=== PATIENT | male | born 1970 | race Caucasian/White ===

== ENCOUNTER 2019-12-23 10:24 | Outpatient (CLI) | payer OTHER, SELFPAY ==
--- NOTE | ~2019-12-23 | US_ITS ---
EXAMINATION: US abdomen complete DATE: 12/23/2019 11:32 INDICATION: Abdominal pain. TECHNIQUE: Multiple grayscale and Doppler ultrasound images of the abdomen were obtained. COMPARISON: Ultrasound 05/15/17, CT abdomen and pelvis 05/06/2017 FINDINGS: The visualized portions of the head, body, and tail of the pancreas are normal. The liver i s normal without focal lesion. There is normal flow in main portal vein. The gallbladder is normal in size. No gallstones or gallbladder wall thickening. There is no sonographic Maldonado sign. The common duct is normal and measures 3 mm. The kidneys are normal in size. No hydronephrosis. Abdominal aorta is normal in caliber. Inferior vena cava is normal. IMPRESSION: 1. No etiology for the patient's symptoms. Reviewed, dictated and finalized at location B. [employer]
[2019-12-23 11:45] LABS: Basophils Percent Auto 0.7 % (0.2-1.2); Eosinophils Percent Auto 0.5 % (0-4.4); Hematocrit 44.1 % (42.0-52.0); Hemoglobin 15.5 g/dL (14.0-18.0); Immature Granulocyte Absolute 0.01 K/mm3 (0.00-0.031); Immature Granulocyte Percent A 0.2 % (0-0.5); Lymphocytes Absolute Auto 1.29 K/mm3 (0.9-3.2); Lymphocytes Percent Auto 29.3 % (18.3-44.2); Mean Corpuscular HGB Conc 35.1 g/dl (32-36); Mean Corpuscular Hemoglobin 29.8 pg (26-34); Mean Corpuscular Volume 84.8 fl (80-100); Mean Platelet Volume 9.1 fl (7.4-10.4); Monocytes Absolute Auto 0.3 K/mm3 (0.1-0.6); Monocytes Percent Auto 5.7 % (2.6-8.5); Neutrophils Absolute Auto 2.8 K/mm3 (1.3-6.7); Neutrophils Percent Auto 63.6 % (45.5-73.1); Platelet Count Result 225 k/mm3 (150-375); Red Cell Distribution Width 12.6 % (11.5-14.5); White Blood Count 4.4 K/mm3 (4.5-10.0)
[2019-12-23 12:03] LABS: Alanine Aminotransferase 59 U/L (4-50); Albumin Level 4.5 g/dL (3.5-5.1); Alkaline Phosphatase 63 U/L (38-126); Anion Gap 5 mmol/L (8-16); Aspartate Amino Transferase 43 U/L (17-59); Bilirubin,Total 0.6 mg/dL (0.2-1.3); Blood Urea Nitrogen 13 mg/dL (9-20); Calcium 9.2 mg/dL (8.4-10.2); Carbon Dioxide 33 mmol/L (22-30); Chloride 98 mmol/L (98-107); Cholesterol 177 mg/dL (0-200); Estimated Glomerular Filt Rate > 60; Glucose 103 mg/dL (75-110); HDL Direct 49 mg/dL; Potassium 4.7 mmol/L (3.4-5.0); Sodium 136 mmol/L (137-145); Triglycerides 60 mg/dL (<150)
[2019-12-23 12:14] LABS: LDL Cholesterol Direct 109 mg/dL
== END 2019-12-23 10:25 | disposition home or self-care (01) ==
PROVIDERS: PCP Internal Medicine; Visit Provider Nurse Practitioner
DX: R10.9 Unspecified abdominal pain (principal); R53.83 Other fatigue; Z13.220 Encounter for screening for lipoid disorders
CPT/HCPCS: 36415; 76700; 80053; 80061; 84443; 85025

== ENCOUNTER → 2020-04-30 00:15 | Outpatient (CLI) | payer OTHER, SELFPAY ==
[2020-04-30 19:13] LABS: SARS-CoV-2 RNA PCR Negative
== END ==
PROVIDERS: PCP Internal Medicine; Visit Provider Internal Medicine Gastroenterology
DX: Z01.812 Encounter for preprocedural laboratory examination (principal); Z20.822 Contact with and (suspected) exposure to COVID-19
CPT/HCPCS: C9803; U0003; U0005

== ENCOUNTER 2020-05-04 02:32 | Day surgery (SDC) | payer OTHER, SELFPAY ==
[2020-03-24 10:57] VITALS: BMI 29.9
--- NOTE | 2020-04-19 15:17 | PC.NURSE ---
Patient denies any changes in health history since last interview. New COVID and arrival times given. Instructions about medications and NPO status given. Patient verbalizes understanding.
[2020-05-04 08:21] VITALS: BP 142/90; PULSE 63; RESP 20; TEMP 36.5; O2SAT 100
[2020-05-04] MEDS: LACTATED RINGERS 1,000 ML 150 ML IV CONT (08:34)
--- NOTE | 2020-05-04 09:11 | WPDANESEPPF ---
Anes - Initial Pre Proc Eval Procedure: Operation Date: 05/04/20 09:30 Proposed Procedures p Esophagogastroduodenoscopy & Screening Colonoscopy - Eamon Martinez MD Date/Time: 05/04/20 09:11 Surgeon: Eamon Martinez MD Pre Op Diagnosis: Neoplasm Screening,GERD Patient Data Age: 50 Gender: M Height: 6 ft Weight: 100 kg Last Vital Signs Temp 97.7 F 05/04/20 08:21 Pulse 63 05/04/20 08:21 Resp 20 05/04/20 08:21 BP 142/90 H 05/04/20 08:21 Pulse Ox 100 05/04/20 08:21 Allergies Allergy/AdvReac Type Severity Reaction Status Date / Time No Known Allergies Allergy Unknown Verified 05/04/20 08:20 Home Medications Medication Instructions Recorded Confirmed Type metoprolol succinate 25 mg 25 mg PO DAILY 12/23/19 03/24/20 History tablet,extended release 24 hr omeprazole 20 mg tablet,delayed 20 mg PO DAILY 01/06/20 03/24/20 History release Patient hx anesthesia problems: none Family hx anesthesia problems: none [facility] Past Medical History Medical History (Updated 05/04/20 @ 09:11 by Nik Carpenter MD) Atrial fibrillation had ablation done; now on metoprolol Colon cancer screening GERD (gastroesophageal reflux disease) History of cardioversion 2009 HTN (hypertension) Surgical History Surgical History (Updated 12/23/19 @ 09:05 by Keyanna Verma) History of hernia repair Inguinal 2007 History of tonsillectomy 1983 Family History Family History (Updated 12/23/19 @ 09:07 by Keyanna Verma) Mother Heart disease Father Cancer Grandparent Cerebrovascular accident Cancer Diabetes mellitus Heart disease Social History Social History (Updated 12/23/19 @ 09:07 by Keyanna Verma) Smoking status: Never smoker Alcohol intake: current Drinks per week: 3 Substance use: never Substance use type: does not use Living arrangements: with family Spiritual care concerns: No Anes - Eval Final PreProcedure Day of Procedure 05/04/20 09:11 Patient weight: overweight Heart: regular rate and rhythm Lungs: clear to auscultation Airway: Mallampati scale class II Neurological: alert and oriented Last oral intake: >/= 8 hours ASA classification: III Emergent: no Anesthetic plan: proceed Anesthesia type and monitoring: general GIVS and standard monitoring Informed Consent: The patient's anesthetic plan and its attendant risks and benefits were discussed with the patient/family/POA. Questions were solicited and answers provided to the satisfaction of the patient/family/POA.
--- NOTE | 2020-05-04 09:16 | PM.HPGS ---
History of Present Illness History of Present Illness Consent: Risks, benefits, and alternatives have been discussed and questions answered. Patient agrees to proceed with procedure. Chief complaint: Neoplasm Screening,GERD Narrative: John Lamar is a 50 year old male with gerd controlled with ppi but will have symptoms if skips a dose, never had scope. Also needs screening colonoscopy Review of Systems Constitutional: Constitutional: Denies headache(s) and Denies weakness Eyes: Eyes: Denies blurry vision ENT: Reports Normal hearing present, Denies headache(s) and Denies neck pain Cardiovascular: Cardiovascular: Denies chest pain and Denies dyspnea Respiratory: Respiratory: Denies dyspnea Gastrointestinal: Gastrointestinal: Reports no additional gastrointestinal complaints Genitourinary: Genitourinary: Denies dysuria Musculoskeletal: Musculoskeletal: Denies neck pain Integumentary/Breasts: Skin/Breast: Denies dry skin Neurologic: Reports Normal hearing present, Denies headache(s) and Denies weakness Psychiatric: Psychiatric: Denies anxiety Endocrine: Endocrine: Denies change in body appearance Hematologic/Lymphatic: Hematologic/Lymphatic: Denies easy bleeding Allergic/Immunologic: Allergic/Immunologic: Denies urticaria PMFSH Past Medical History Medical History (Updated 05/04/20 @ 09:11 by Nik Carpenter MD) Atrial fibrillation had ablation done; now on metoprolol Colon cancer screening GERD (gastroesophageal reflux disease) History of cardioversion 2009 HTN (hypertension) Surgical History Surgical History (Updated 12/23/19 @ 09:05 by Keyanna Verma) History of hernia repair Inguinal 2007 History of tonsillectomy 1983 Family History Family History (Updated 12/23/19 @ 09:07 by Keyanna Verma) Mother Heart disease Father Cancer Grandparent Cerebrovascular accident Cancer Diabetes mellitus Heart disease Social History Social History (Updated 12/23/19 @ 09:07 by Keyanna Verma) Smoking status: Never smoker Alcohol intake: current Drinks per week: 3 Substance use: never Substance use type: does not use Living arrangements: with family Spiritual care concerns: No Meds Home Medications and Allergies Home Medications Medication Instructions Recorded Confirmed Type metoprolol succinate 25 mg 25 mg PO DAILY 12/23/19 03/24/20 History tablet,extended release 24 hr omeprazole 20 mg tablet,delayed 20 mg PO DAILY 01/06/20 03/24/20 History release Allergies Allergy/AdvReac Type Severity Reaction Status Date / Time No Known Allergies Allergy Unknown Verified 05/04/20 08:20 Vital Signs Vital Signs - 24 hr 05/04/20 08:21 Temperature 97.7 F Pulse Rate 63 Respiratory Rate 20 Blood Pressure 142/90 H Pulse Oximetry 100 Exam Const: General: comfortable and no acute distress HENMT: General nose exam: Normal nares present Eyes: General: appearance normal, both eyes and all related structures Neck: Neck: no JVD Resp: Auscultation: clear to auscultation bilaterally Cardio: Rate: regular rate Rhythm: regular rhythm GI: Inspection: non-distended GI Palp: Yes Soft to palpation Skin: General skin exam: normal color Neuro: General: gait normal Speech: normal speech Extrem: General: normal to inspection Psych: Mental Status: mental status grossly normal Assessment and Plan Assessment and plan (1) GERD (gastroesophageal reflux disease): Code(s): K21.9 - Gastro-esophageal reflux disease without esophagitis Status: Acute Assessment and Plan: egd with bx (2) Colon cancer screening: Code(s): Z12.11 - Encounter for screening for malignant neoplasm of colon Status: Acute Assessment and Plan: never had a colonoscopy
[2020-05-04 09:47] VITALS: BP 124/84; PULSE 60; RESP 19; O2SAT 98
[2020-05-04 09:57] VITALS: BP 116/81; PULSE 62; RESP 20; O2SAT 97
[2020-05-04 10:07] VITALS: BP 118/60; PULSE 64; RESP 20; O2SAT 97
== END 2020-05-04 10:25 | disposition home or self-care (01) ==
PROVIDERS: Family Provider Internal Medicine; PCP Internal Medicine; Visit Provider Internal Medicine Gastroenterology
PROC: 0DJ08ZZ Inspection of Upper Intestinal Tract, Via Natural or Artificial Opening Endoscopic (ICD-10-PCS; CPT 43235; principal; 2020-05-04 09:30)
DX: Z12.11 Encounter for screening for malignant neoplasm of colon (principal); K64.8 Other hemorrhoids; K21.00 Gastro-esophageal reflux disease with esophagitis, without bleeding; K44.9 Diaphragmatic hernia without obstruction or gangrene; K22.70 Barrett's esophagus without dysplasia; K29.50 Unspecified chronic gastritis without bleeding
CPT/HCPCS: 45378; 43239; 88305; J2001; J2704; J7120

== ENCOUNTER 2020-05-24 10:35 | Outpatient (CLI) | payer OTHER, SELFPAY ==
--- NOTE | ~2020-05-24 | CT_ITS ---
EXAMINATION: CT abdomen pelvis wo con DATE: 05/24/2020 10:55 INDICATION: Unspecified abdominal pain. TECHNIQUE: Computed tomography (CT) of the abdomen and pelvis was performed without intravenous contr ast. Automated exposure control and iterative reconstruction technique were employed. The dose-length product was 810.67 mGy-cm. COMPARISON: CT abdomen and pelvis 05/06/2017 FINDINGS: The visualized portions of the lung bases demonstrates mild atelectasis. No pleural effusio n. The heart size is normal. No pericardial effusion. There is a small sliding hiatal hernia. The pravin er, gallbladder, pancreas, and adrenal glands are normal. Calcifications in the spleen are consistent with old granulomatous disease. The kidneys are normal. There is no urolithiasis. There is a small u mbilical hernia containing fat. There is a left inguinal hernia containing fat. There are no dilated loops of bowel. The appendix is not visualized. There are no pathologically enlarged lymph nodes. The re is no free intraperitoneal fluid. There is mild lumbar spondylosis. IMPRESSION: 1. Small sliding hiatal hernia. 2. Umbilical hernia and left inguinal hernia containing fat. Reviewed, dictated and finalized at location A.
== END 2020-05-24 10:36 | disposition home or self-care (01) ==
LOC: ANHIMG 10:37
PROVIDERS: PCP Internal Medicine; Visit Provider Nurse Practitioner
DX: K44.9 Diaphragmatic hernia without obstruction or gangrene (principal)
CPT/HCPCS: 74176

== ENCOUNTER 2020-06-02 10:26 | Outpatient (CLI) | payer OTHER, SELFPAY ==
[2020-06-02 11:18] LABS: Alanine Aminotransferase 37 U/L (4-50); Albumin Level 4.6 g/dL (3.5-5.1); Alkaline Phosphatase 56 U/L (38-126); Anion Gap 6 mmol/L (8-16); Aspartate Amino Transferase 41 U/L (17-59); Bilirubin,Total 0.3 mg/dL (0.2-1.3); Blood Urea Nitrogen 17 mg/dL (9-20); Carbon Dioxide 30 mmol/L (22-30); Chloride 92 mmol/L (98-107); Estimated Glomerular Filt Rate > 60; Glucose 103 mg/dL (75-110); Potassium 4.7 mmol/L (3.4-5.0); Sodium 128 mmol/L (137-145)
== END 2020-06-02 10:27 | disposition home or self-care (01) ==
LOC: ANHLAB 10:27
PROVIDERS: PCP Internal Medicine; Visit Provider Clinical Nurse Specialist
DX: R74.8 Abnormal levels of other serum enzymes (principal); Z12.5 Encounter for screening for malignant neoplasm of prostate
CPT/HCPCS: 36415; 80053; 84153; G0103

== ENCOUNTER 2020-06-21 17:53 | Outpatient (CLI) | payer OTHER, SELFPAY ==
[2020-06-21 18:15] LABS: Anion Gap 7 mmol/L (8-16); Blood Urea Nitrogen 20 mg/dL (9-20); Calcium 9.1 mg/dL (8.4-10.2); Carbon Dioxide 29 mmol/L (22-30); Chloride 97 mmol/L (98-107); Estimated Glomerular Filt Rate > 60; Glucose 99 mg/dL (75-110); Potassium 4.1 mmol/L (3.4-5.0); Sodium 133 mmol/L (137-145)
== END 2020-06-21 17:54 | disposition home or self-care (01) ==
LOC: ANHLAB 17:55
PROVIDERS: PCP Internal Medicine; Visit Provider Clinical Nurse Specialist
DX: E87.1 Hypo-osmolality and hyponatremia (principal)
CPT/HCPCS: 36415; 80048

== ENCOUNTER 2021-11-07 00:34 | Day surgery (SDC) | payer OTHER, SELFPAY ==
[2021-10-23 13:42] VITALS: BMI 29.9
[2021-11-07 08:45] VITALS: BP 130/89; PULSE 60; RESP 18; TEMP 36.2; O2SAT 100; BMI 30.6
[2021-11-07] MEDS: LACTATED RINGERS 1,000 ML 150 ML IV CONT (09:06)
--- NOTE | 2021-11-07 09:30 | WPDANESEPPF ---
Anes - Initial Pre Proc Eval Procedure: Operation Date: 11/07/21 10:00 Proposed Procedures p Esophagogastroduodenoscopy - Eamon Martinez MD Date/Time: 11/07/21 09:30 Surgeon: Eamon Martinez MD Pre Op Diagnosis: Barretts' esophagus Patient Data Age: 51 Gender: M Height: 1.83 m Weight: 102.5 kg Last Vital Signs Temp 97.1 F L 11/07/21 08:45 Pulse 60 11/07/21 08:45 Resp 18 11/07/21 08:45 BP 130/89 11/07/21 08:45 Pulse Ox 100 11/07/21 08:45 O2 Del Method Room Air 11/07/21 08:45 Allergies Allergy/AdvReac Type Severity Reaction Status Date / Time No Known Allergies Allergy Unknown Verified 11/07/21 08:51 Home Medications Medication Instructions Recorded Confirmed Type metoprolol succinate 25 mg 25 mg PO DAILY 12/23/19 11/07/21 History tablet,extended release 24 hr omeprazole 20 mg tablet,delayed 40 mg PO DAILY 1 month #60 tabs 05/15/21 11/07/21 Rx release Patient hx anesthesia problems: none Family hx anesthesia problems: none Results Review: All pre-operative results and documents have been reviewed as part of the pre-operative evaluation. [facility] Past Medical History Medical History Atrial fibrillation had ablation done; now on metoprolol Colon cancer screening GERD (gastroesophageal reflux disease) History of cardioversion 2009 HTN (hypertension) Surgical History Surgical History History of hernia repair Inguinal 2007 History of tonsillectomy 1982 Family History Family History Mother Heart disease Father Cancer Grandparent Cerebrovascular accident Cancer Diabetes mellitus Heart disease Social History Social History Smoking status: Never smoker Alcohol intake: current Drinks per week: 6 Alcohol use details: BEER Substance use: never Substance use type: does not use Living arrangements: with family Spiritual care concerns: No Anes - Eval Final PreProcedure Day of Procedure 11/07/21 09:30 Patient weight: normal Heart: regular rate and rhythm Lungs: clear to auscultation Airway: Mallampati scale class II Neurological: alert and oriented Last oral intake: >/= 8 hours ASA classification: II Emergent: no Anesthetic plan: proceed Anesthesia type and monitoring: general GIVS and standard monitoring Results Review: All pre-operative results and documents have been reviewed as part of the pre-operative evaluation. Informed Consent: The patient's anesthetic plan and its attendant risks and benefits were discussed with the patient/family/POA. Questions were solicited and answers provided to the satisfaction of the patient/family/POA.
--- NOTE | 2021-11-07 09:34 | PM.HPGS ---
History of Present Illness History of Present Illness Consent: Risks, benefits, and alternatives have been discussed and questions answered. Patient agrees to proceed with procedure. 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, better with ppi Review of Systems Constitutional: Constitutional: Denies headache(s) and Denies weakness Eyes: Eyes: Denies blurry vision ENT: Reports Normal hearing present, Denies headache(s) and Denies neck pain Cardiovascular: Cardiovascular: Denies chest pain and Denies dyspnea Respiratory: Respiratory: Denies dyspnea Gastrointestinal: Gastrointestinal: Reports no additional gastrointestinal complaints Genitourinary: Genitourinary: Denies dysuria Musculoskeletal: Musculoskeletal: Denies neck pain Integumentary/Breasts: Skin/Breast: Denies dry skin Neurologic: Reports Normal hearing present, Denies headache(s) and Denies weakness Psychiatric: Psychiatric: Denies anxiety Endocrine: Endocrine: Denies change in body appearance Hematologic/Lymphatic: Hematologic/Lymphatic: Denies easy bleeding Allergic/Immunologic: Allergic/Immunologic: Denies urticaria PMFSH Past Medical History Medical History Atrial fibrillation had ablation done; now on metoprolol Colon cancer screening GERD (gastroesophageal reflux disease) History of cardioversion 2009 HTN (hypertension) Surgical History Surgical History History of hernia repair Inguinal 2007 History of tonsillectomy 1983 Family History Family History Mother Heart disease Father Cancer Grandparent Cerebrovascular accident Cancer Diabetes mellitus Heart disease Social History Social History Smoking status: Never smoker Alcohol intake: current Drinks per week: 6 Alcohol use details: BEER Substance use: never Substance use type: does not use Living arrangements: with family Spiritual care concerns: No Meds Home Medications and Allergies Home Medications Medication Instructions Recorded Confirmed Type metoprolol succinate 25 mg 25 mg PO DAILY 12/23/19 11/07/21 History tablet,extended release 24 hr omeprazole 20 mg tablet,delayed 40 mg PO DAILY 1 month #60 tabs 05/15/21 11/07/21 Rx release Allergies Allergy/AdvReac Type Severity Reaction Status Date / Time No Known Allergies Allergy Unknown Verified 11/07/21 08:51 Vital Signs Vital Signs - 24 hr 11/07/21 08:45 Temperature 97.1 F L Pulse Rate 60 Respiratory Rate 18 Blood Pressure 130/89 Pulse Oximetry 100 Oxygen Delivery Room Air Exam Const: General: comfortable and no acute distress HENMT: General nose exam: Normal nares present Eyes: General: appearance normal, both eyes and all related structures Neck: Neck: no JVD Resp: Auscultation: clear to auscultation bilaterally Cardio: Rate: regular rate Rhythm: regular rhythm GI: Inspection: non-distended GI Palp: Yes Soft to palpation Skin: General skin exam: normal color Neuro: General: gait normal Speech: normal speech Extrem: General: normal to inspection Psych: Mental Status: mental status grossly normal Assessment and Plan Assessment and plan (1) Lebron esophagus: Qualifiers: Lebron's esophagus type: with dysplasia of unspecified degree Qualified Code(s): K22.719 - Lebron's esophagus with dysplasia, unspecified Code(s): K22.70 - Lebron's esophagus without dysplasia Status: Acute Assessment and Plan: repeat egd with bx, continue with ppi
[2021-11-07 09:58] VITALS: BP 113/79; PULSE 59; RESP 20; O2SAT 96
[2021-11-07 10:08] VITALS: BP 122/84; PULSE 56; RESP 20; O2SAT 96
[2021-11-07 10:18] VITALS: BP 122/90; PULSE 55; RESP 19; O2SAT 97
== END 2021-11-07 10:24 | disposition home or self-care (01) ==
PROVIDERS: PCP Internal Medicine; Visit Provider Internal Medicine Gastroenterology
PROC: 0DJ08ZZ Inspection of Upper Intestinal Tract, Via Natural or Artificial Opening Endoscopic (ICD-10-PCS; CPT 43235; principal; 2021-11-07 10:00)
DX: K21.9 Gastro-esophageal reflux disease without esophagitis (principal); K22.70 Barrett's esophagus without dysplasia; K44.9 Diaphragmatic hernia without obstruction or gangrene; I48.91 Unspecified atrial fibrillation; I10 Essential (primary) hypertension
CPT/HCPCS: 43239; 88305; J2001; J2704; J7120

== ENCOUNTER 2022-03-22 14:48 | Outpatient (CLI) | payer OTHER, SELFPAY ==
[2022-03-22 16:02] LABS: SARS-CoV-2 RNA PCR Positive
== END 2022-03-22 14:49 | disposition home or self-care (01) ==
LOC: ANHLAB 14:50
PROVIDERS: PCP Internal Medicine; Visit Provider Clinical Nurse Specialist
DX: U07.1 COVID-19 (principal)
CPT/HCPCS: U0003; U0005

== ENCOUNTER 2022-06-01 08:41 | Emergency (ER) | payer OTHER, SELFPAY ==
--- NOTE | 2022-06-01 08:46 | ED.SKABFB ---
HPI - Skin/Abscess/Foreign Bdy General Chief complaint: Skin/Abscess/Foreign Body Stated complaint: painful rashes on back Time Seen by Provider: 06/01/22 08:49 Source: patient, RN notes reviewed and old records reviewed Mode of arrival: ambulatory Limitations: no limitations History of Present Illness HPI narrative: 52-year-old male presents to the [facility] with complaints of a painful red rash to his back. Bilateral back near scapulas, oval, started Saturday. No treatment prior to arrival describes it as intermittent painful at times. Not constant. Onset (ago): day(s) (2) Related Data Home Medications Medication Instructions Recorded Confirmed metoprolol succinate 25 mg 25 mg PO DAILY 12/23/19 06/01/22 tablet,extended release 24 hr Allergies Allergy/AdvReac Type Severity Reaction Status Date / Time No Known Allergies Allergy Unknown Verified 06/01/22 08:56 Review of Systems Review of Systems: All systems reviewed & are unremarkable except as noted in HPI and below Constitutional: Constitutional: Reports no additional constitutional complaints Eyes: Eyes: Reports no additional eye complaints ENT: Reports system reviewed and no additional complaints, except as documented Cardiovascular: Cardiovascular: Reports no additional cardiovascular complaints, Denies chest pain and Denies dyspnea Respiratory: Respiratory: Reports no additional respiratory complaints, Denies chest congestion, Denies cough and Denies dyspnea Gastrointestinal: Gastrointestinal: Reports no additional gastrointestinal complaints, Denies abdominal pain, Denies nausea and Denies vomiting Musculoskeletal: Musculoskeletal: Reports no additional musculoskeletal complaints Integumentary/Breasts: Skin/Breast: Reports as per HPI, Reports rash and Reports skin pain Neurologic: Reports system reviewed and no additional complaints, except as documented Psychiatric: Psychiatric: Reports no additional psychiatric complaints Allergic/Immunologic: Allergic/Immunologic: Reports no additional allergic/immunologic complaints [facility] Past Medical History Medical History Atrial fibrillation had ablation done; now on metoprolol Colon cancer screening GERD (gastroesophageal reflux disease) History of cardioversion 2009 HTN (hypertension) Surgical History Surgical History History of hernia repair Inguinal 2007 History of tonsillectomy 1983 Family History Family History Mother Heart disease Father Cancer Grandparent Cerebrovascular accident Cancer Diabetes mellitus Heart disease Social History Social History Smoking status: Never smoker Alcohol intake: current Drinks per week: 6 Alcohol use details: BEER Substance use: never Substance use type: does not use Living arrangements: with family Spiritual care concerns: No Comments At the time of my signature, I reviewed and agree with the nursing past medical, surgical, social, and family history. There is no relevant family history pertinent to the patient complaint. Exam Const: General: cooperative, healthy appearing, comfortable, no acute distress, well developed, alert and well nourished Nutritional Appearance: well nourished Orientation/consciousness: patient oriented x3 Limitations: no limitations HENMT: Head: normal to inspection Ears: hearing grossly normal bilaterally and external ears normal Face/Nose/Sinus: Normal external nose present, Normal nares present, Normal nasal mucous membranes and turbinates present and normal facial exam Face and sinus: normal facial exam Mouth: Yes Normal oral and palatal mucosa present, Yes lip normal and Yes moist mucous membranes Throat: posterior oropharynx normal and uvula midline Eyes:
[2022-06-01 08:55] VITALS: BP 147/98; PULSE 70; RESP 16; TEMP 36.7; O2SAT 100
== END 2022-06-01 09:07 | disposition home or self-care (01) ==
PROVIDERS: Emergency Provider Nurse Practitioner; PCP Internal Medicine
DX: L03.312 Cellulitis of back [any part except buttock and flank] (principal); I48.91 Unspecified atrial fibrillation; K21.9 Gastro-esophageal reflux disease without esophagitis; I10 Essential (primary) hypertension
CPT/HCPCS: 99213; G0463

== ENCOUNTER 2022-08-11 18:48 | Emergency (ER) | payer OTHER, SELFPAY ==
--- NOTE | ~2022-08-11 | CT_ITS ---
EXAMINATION: CT orbit BI w con DATE: 08/11/2022 21:12 INDICATION: Right-sided orbital cellulitis TECHNIQUE: Computed tomography (CT) of the roots was performed with 5 mL Omnipaque-350 intravenous co ntrast. Sagittal and coronal reconstructions were created. The dose-length product was 155.29 mGy-cm. COMPARISON: None FINDINGS: Mild right preseptal edema and soft tissue swelling. No abscess or subcutaneous gas. The deeper porti on of the right orbit including the globes appear normal with no post septal inflammatory stranding. Left orbit is normal. Mild mucosal thickening the paranasal sinuses with small amount of mucus versus mucous retention cyst at the posterior right sphenoid sinus. Bones appear normal with no fracture or erosions. Nasal septum is bowed mildly towards the left. Visualized portions of the mastoid air cell s and middle ear cavities are clear. Visualized portion of the brain appear normal. Left vertebral ar aarti is dominant. IMPRESSION: 1. Preseptal inflammatory stranding at the right orbit with no abscess or post septal inflammatory st randing to suggest deeper involvement of the right orbit. Reviewed, dictated and finalized at location A. IMPRESSION: 1. Preseptal inflammatory stranding at the right orbit with no abscess or post septal inflammatory stranding to suggest deeper involvement of the right orbit.
[2022-08-11 18:51] VITALS: BP 152/95; PULSE 66; RESP 18; TEMP 36.4; O2SAT 97
[2022-08-11] MEDS: TETRACAINE HCL 0.5% OPHTH SOLN 4 ML BTL 1 DROP EACH EYE (20:27)
[2022-08-11] MEDS: FLUORESCEIN SOD 1 MG/STRIP EACH EYE (20:27)
[2022-08-11 20:38] VITALS: BP 131/88; PULSE 63; RESP 13; TEMP 36.8; O2SAT 97
[2022-08-11] MEDS: OFLOXACIN 0.3% OPHTH SOLN 5 ML BTL 1 DROP EACH EYE (20:45)
[2022-08-11 20:46] LABS: Basophils Percent Auto 0.4 % (0.2-1.2); Eosinophils Absolute Auto 0.1 K/mm3 (0-0.3); Eosinophils Percent Auto 1.1 % (0-4.4); Hematocrit 43.5 % (42.0-52.0); Hemoglobin 14.8 g/dL (14.0-18.0); Immature Granulocyte Absolute 0.02 K/mm3 (0.00-0.031); Immature Granulocyte Percent A 0.2 % (0-0.5); Lymphocytes Absolute Auto 1.95 K/mm3 (0.9-3.2); Lymphocytes Percent Auto 21.6 % (18.3-44.2); Mean Corpuscular Hemoglobin 29.4 pg (26-34); Mean Corpuscular Volume 86.3 fl (80-100); Mean Platelet Volume 9.4 fl (7.4-10.4); Monocytes Absolute Auto 0.5 K/mm3 (0.1-0.6); Monocytes Percent Auto 5.6 % (2.6-8.5); Neutrophils Absolute Auto 6.4 K/mm3 (1.3-6.7); Neutrophils Percent Auto 71.1 % (45.5-73.1); Platelet Count Result 244 k/mm3 (150-375); Red Blood Count 5.04 M/mm3 (4.6-6.20); Red Cell Distribution Width 12.8 % (11.5-14.5)
[2022-08-11 20:58] LABS: Anion Gap 6 mmol/L (8-16); Blood Urea Nitrogen 18 mg/dL (9-20); Carbon Dioxide 31 mmol/L (22-30); Chloride 96 mmol/L (98-107); Estimated Glomerular Filt Rate > 60; Glucose 96 mg/dL (65-110); Potassium 4.2 mmol/L (3.4-5.0); Sodium 133 mmol/L (137-145)
--- NOTE | 2022-08-11 21:04 | ED.GENADULT ---
HPI - General Adult General Chief complaint: Eye Problems Stated complaint: right eye pain and discharge Time Seen by Provider: 08/11/22 19:35 History of Present Illness HPI narrative: This is a 52 year old male presenting with eye pain and discharge. Eye symptoms started this morning, they include injection, purulent discharge and pain with extra ocular eye movements. URI symptoms last week. No fever chills nausea vomiting diarrhea. . No risk factors for gonorhea. Related Data Home Medications Medication Instructions Recorded Confirmed metoprolol succinate 25 mg 25 mg PO DAILY 12/23/19 08/08/22 tablet,extended release 24 hr Allergies Allergy/AdvReac Type Severity Reaction Status Date / Time No Known Allergies Allergy Unknown Verified 08/11/22 18:48 [facility] Past Medical History Medical History Atrial fibrillation had ablation done; now on metoprolol Colon cancer screening GERD (gastroesophageal reflux disease) History of cardioversion 2009 HTN (hypertension) Surgical History Surgical History History of hernia repair Inguinal 2007 History of tonsillectomy 1983 Family History Family History Mother Heart disease Father Cancer Grandparent Cerebrovascular accident Cancer Diabetes mellitus Heart disease Social History Social History Smoking status: Never smoker Alcohol intake: current Drinks per week: 6 Alcohol use details: BEER Substance use: never Substance use type: does not use Lack of Transportation: No Lack of Food: Never True Current Housing: I Have Housing Concerned About Future Housing: No Difficulty Paying Gas/Electric Bills: No Difficulty Paying for Meds: No Currently Unemployed: No Education: Master's Degree or Higher Difficulty w/ Childcare or Family Care: No Living arrangements: with family Spiritual care concerns: No Exam Narrative: APPEARANCE: No apparent distress. Head: atraumatic. tympanic membranes are normal EYES: Contact eyelid junction and mucopurulent discharge of the right eye. extraocular eye movements intact. Patient reports pain with extraocular eye movements. IOP R 15, IOP L 10, fluorescein stain revealed no ulcerations NOSE: Atraumatic NECK: Trachea midline RESPIRATORY: No increased rate of breathing clear to auscultation CARDIOVASCULAR: RRR, ABDOMINAL: Non-distended MUSCULOSKELETAl: No obvious deformities NEURO: Alert. Moving 4/4 extremities SKIN:: Warm, dry. Normal color PSYCHIATRIC: Normal affect Course Vital Signs Vital signs: Vital Signs Temperature 97.5 F L 08/11/22 18:51 Pulse Rate 66 08/11/22 18:51 Respiratory Rate 18 08/11/22 18:51 Blood Pressure 152/95 H 08/11/22 18:51 Pulse Oximetry 97 08/11/22 18:51 Oxygen Delivery Room Air 08/11/22 18:51 Temperature 98.2 F 08/11/22 20:38 Pulse Rate 63 08/11/22 20:38 Respiratory Rate 13 08/11/22 20:38 Blood Pressure 131/88 08/11/22 20:38 Pulse Oximetry 97 08/11/22 20:38 Oxygen Delivery Room Air 08/11/22 18:51 Medical Decision Making MDM Narrative Medical decision making narrative: -Presentation: 52-year-old male presenting with painful red eye. -DDX includes but is not limited to: Bacterial conjunctivitis, viral conjunctivitis, orbital cellulitis -Co-morbidities complicating care: hypertension -Social determinants of health: patient works as a banking attorney -External Chart Review: none -Hx from independent Sources: bedside -Independent interpretation of studies: CBC normal. Metabolic panel showed slight hyponatremia and hypochloremia. IOP normal. No evidence of ulceration on flurescein stain. Visual acuity R 20/30, L 20/25 CT orbits showed some mild
[2022-08-11] MEDS: IBUPROFEN 400 MG TABLET 800 MG PO (22:00)
[2022-08-11] MEDS: ACETAMINOPHEN 500 MG TABLET 1000 MG PO (22:00)
[2022-08-11] MEDS: AMOXICILLIN/CLAVULANATE K 875-125 MG TAB 1 TABLET PO (22:01)
[2022-08-11 22:06] VITALS: BP 145/95; PULSE 62; RESP 14; TEMP 37.1; O2SAT 98
== END 2022-08-11 22:13 | disposition home or self-care (01) ==
PROVIDERS: Emergency Provider Emergency Medicine; PCP Internal Medicine
DX: L03.213 Periorbital cellulitis (principal); H10.89 Other conjunctivitis; I48.91 Unspecified atrial fibrillation; I10 Essential (primary) hypertension; K21.9 Gastro-esophageal reflux disease without esophagitis
CPT/HCPCS: 36415; 70481; 80048; 85025; 99284; A9270; Q9967

== ENCOUNTER 2024-09-13 08:24 | Emergency (ER) | payer OTHER, SELFPAY ==
[2024-09-13 08:33] VITALS: BP 131/90; PULSE 60; RESP 16; TEMP 36.4; O2SAT 100
--- NOTE | 2024-09-13 08:59 | ED_ITS ---
HPI - Nausea/Vomiting/Diarrhea General Chief complaint: Nausea/Vomiting/Diarrhea Stated complaint: Vomiting/Nausea Time Seen by Provider: 09/13/24 08:47 Source: patient and RN notes reviewed Mode of arrival: ambulatory Limitations: no limitations History of Present Illness HPI Narrative: Patient presents today complaining of nausea and vomiting since yesterday afternoon. He vomited several times, last episode was 4:00 a.m. this morning. He has been able to keep down some water and his to medications early this morning, and tried to go to a training exercise this morning but was unable as he was still feeling nauseated and weak. Denies diarrhea. States he did have some abdominal cramping during his vomiting episodes, but none currently. No OTC medications taken. No suspicious food intake or recent travel. No one else in his home is ill at this time. Related Data Home Medications ?Medication ?Instructions ?Recorded ?Confirmed ?Last Taken ?Type metoprolol succinate 25 mg 25 mg PO DAILY 12/23/19 08/08/22 05/04/20 History tablet,extended release 24 hr Allergies Allergy/AdvReac Type Severity Reaction Status Date / Time No Known Allergies Allergy Unknown Verified 09/13/24 08:46 [facility] Past Medical History Medical History Atrial fibrillation had ablation done; now on metoprolol GERD (gastroesophageal reflux disease) Colon cancer screening HTN (hypertension) History of cardioversion 2009 Surgical History Surgical History History of tonsillectomy 1983 History of hernia repair Inguinal 2006 Family History Family History Mother Heart disease Father Cancer Grandparent Cerebrovascular accident Cancer Diabetes mellitus Heart disease Social History Social History Smoking status: Never smoker Alcohol intake: current Drinks per week: 6 Alcohol use details: BEER Substance use: never Substance use type: does not use Lack of Transportation: No Lack of Food: Never True Current Housing: I Have Housing Concerned About Future Housing: No Difficulty Paying Gas/Electric Bills: No Difficulty Paying for Meds: No Currently Unemployed: No Education: Master's Degree or Higher Difficulty w/ Childcare or Family Care: No Living arrangements: with family Spiritual care concerns: No Comments At time of signature, I have reviewed and agree with nursing past medical, surgical, social and family history unless otherwise noted. Please see nursing chart for further information. There is no relevant family history pertinent to the presenting complaint Exam Narrative: GENERAL: Well-appearing, well-nourished, and in no acute distress. HEAD: Normocephalic, atraumatic. EYES: EOMI. No redness or drainage. Conjunctivae normal. ENT: Mucous membranes pink and moist. Throat normal. Uvula midline. NECK: Normal AROM. CHEST: No respiratory distress. Clear to auscultation. HEART: Regular rate and rhythm. No murmur appreciated. ABDOMEN: Soft, nontender, nondistended, normal active bowel sounds. EXTREMITIES: Normal range of motion. No edema. SKIN: Warm, dry, no rash. Capillary refill normal. Normal skin turgor. NEURO: No focal deficits. Alert and oriented x3. Gait steady. PSYCH: Normal affect. No signs of depression or anxiety. Course Course Level of Care: Express Care Visit Vital Signs Vital signs: Vital Signs Temperature 97.5 F L 09/13/24 08:33 Pulse Rate 60 09/13/24 08:33 Respiratory Rate 16 09/13/24 08:33 Blood Pressure 131/90 09/13/24 08:33 Pulse Oximetry 100 09/13/24 08:33 Temperature 97.5 F L 09/13/24 08:33 Pulse Rate 60 09/13/24 08:33 Respiratory Rate 16 09/13/24 08:33 Blood Pressure 131/90 09/13/24 08:33 Pulse Oximetry 100 09/13/24 08:33 Reviewed MDM - Nausea/Vomiting/Diarrhea MDM Narrative Medical decision making narrative: 54-year-old male patient presents today nausea and vomiting that started yesterday afternoon and persisted through the night. Last episode vomiting was 4. Patient has been able to keep down some water and his medications this morning has some persistent nausea. He called in to a work training exercise this morning and wanted to come in for evaluation. Physical exam is essentially normal with no abdominal tenderness. Mucous membranes pink and moist. Patient was treated with a dose of Zofran here and a prescription has been sent to pharmacy. Work excuse provided. Vital signs stable. No red flag symptoms to warrant a transfer to the emergency department for further evaluation. He is stable for outpatient management. Anticipatory guidance given. Differential Diagnosis Differential diagnosis: Likely food poisoning, gastroenteritis and dehydration Critical Care Time Critical Care Time Critical Care Time: No Discharge Plan Discharge Clinical Impression: Nausea & vomiting Qualifiers: Vomiting type: unspecified Qualified Code(s): R11.2 - Nausea with vomiting, unspecified Patient Disposition: Home Condition: Stable Instructions: Dehydration (ED), Acute Nausea and Vomiting (ED) Additional Instructions: Please take the Zofran as prescribed for your nausea and vomiting. Your 1st dose was administered while you are here at [facility]. Rest and stay hydrated today. Advance your diet as tolerated, starting with bland foods such as toast, crackers, rice. If you continue to vomit, even with medication, and are unable to keep down any fluids, please go to the ER immediately for further evaluation and treatment. Your blood pressure was elevated above 120/80 today at Urgent Care. This puts you above the threshold for follow up. Please schedule a followup visit with your personal physician as soon as possible, for further evaluation and treatment. Even blood pressure exceeding 120/80 may indicate pre-hypertension. Patient Language: Danish Prescriptions: New ondansetron 8 mg tablet,disintegrating 8 mg PO Q4-6H PRN (Reason: nausea and vomiting) Qty: 20 0RF No Action metoprolol succinate 25 mg tablet extended release 24 hr 25 mg PO DAILY omeprazole 20 mg tablet,delayed release (DR/EC) 40 mg PO DAILY 30 Days Qty: 60 12RF Follow-up/Referrals: PHYSICIAN,[employer]NA[employer] [Primary Care Provider] - Stand Alone Forms: Work/School Release IP Time of Disposition: 09:03
[2024-09-13] MEDS: ONDANSETRON HCL ODT 4 MG TABLET 8 MG SUBLINGUAL (09:01)
== END 2024-09-13 09:05 | disposition home or self-care (01) ==
PROVIDERS: Emergency Provider Nurse Practitioner
DX: R11.2 Nausea with vomiting, unspecified (principal); I10 Essential (primary) hypertension; K21.9 Gastro-esophageal reflux disease without esophagitis
CPT/HCPCS: 99213; A9270; G0463

== ENCOUNTER 2025-01-14 00:16 | Day surgery (SDC) | payer OTHER, SELFPAY ==
[2024-12-23 13:58] VITALS: BMI 29.8
[2025-01-14 06:18] VITALS: BP 146/99; PULSE 52; RESP 16; TEMP 36.1; O2SAT 99
[2025-01-14] MEDS: LACTATED RINGERS 1,000 ML 150 ML IV CONT (06:29)
--- NOTE | 2025-01-14 07:17 | P.PNAN_ITS ---
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 Patient Data Age: 55 Gender: M Height: 1.83 m Weight: 104.9 kg Last Vital Signs Temp 36.1 C L 01/14/25 06:18 Pulse 52 L 01/14/25 06:18 Resp 16 01/14/25 06:18 BP 146/99 H 01/14/25 06:18 Pulse Ox 99 01/14/25 06:18 O2 Del Method Room Air 01/14/25 06:18 Allergies Allergy/AdvReac Type Severity Reaction Status Date / Time No Known Allergies Allergy Unknown Verified 01/14/25 06:16 Home Medications ?Medication ?Instructions ?Recorded ?Confirmed ?Type metoprolol succinate 25 mg 25 mg PO DAILY 12/23/1906/05 History tablet,extended release 24 hr omeprazole 20 mg tablet,delayed 40 mg (2 x 20 mg) PO D AILY 1 month 06/08/22 01/14/25 Rx release #60 tabs multivitamin (Daily Multi-Vitamin 1 tablet PO DAILY 01/14/25 History tablet) Patient hx anesthesia problems: none Family hx anesthesia problems: none Results Review: All pre-operative results and documents have been reviewed as part of the pre- operative evaluation. [facility] Past Medical History Medical History Atrial fibrillation had ablation done; now on metoprolol GERD (gastroesophageal reflux disease) Colon cancer screening HTN (hypertension) History of cardioversion 2009 Surgical History Surgical History History of tonsillectomy 1982 History of hernia repair Inguinal 2006 Family History Family History Mother Heart disease Father Cancer Grandparent Cerebrovascular accident Cancer Diabetes mellitus Heart disease Social History Social History Smoking status: Never smoker Alcohol intake: current Drinks per week: 6 Alcohol use details: BEER Substance use: never Substance use type: does not use Lack of Transportation: No Lack of Food: Never True Current Housing: I Have Housing Concerned About Future Housing: No Difficulty Paying Gas/Electric Bills: No Difficulty Paying for Meds: No Currently Unemployed: No Education: Master's Degree or Higher Difficulty w/ Childcare or Family Care: No Living arrangements: with family Spiritual care concerns: No Anes - Eval Final PreProcedure Day of Procedure 01/14/25 07:17 Patient weight: obese Heart: regular rate and rhythm Lungs: clear to auscultation Airway: Mallampati scale class II Neurological: alert and oriented Last oral intake: >/= 8 hours ASA classification: II Emergent: no Anesthetic plan: proceed Results Review: All pre-operative results and documents have been reviewed as part of the pre- operative evaluation. Informed Consent: The patient's anesthetic plan and its attendant risks and benefits were discussed with the patient/family/POA. Questions were solicited and answers provided to the satisfaction of the patient/family/POA.
--- NOTE | 2025-01-14 07:29 | PM.HPGS ---
History of Present Illness History of Present Illness Consent: Risks, benefits, and alternatives have been discussed and questions answered. Patient agrees to proceed with procedure. 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 Narrative: John Lamar is a 55 year old male with lebron's with last egd 2021, on omeprazole daily Review of Systems Review of Systems: All systems reviewed & are unremarkable except as noted in HPI and below PMFSH Past Medical History Medical History Atrial fibrillation had ablation done; now on metoprolol GERD (gastroesophageal reflux disease) Colon cancer screening HTN (hypertension) History of cardioversion 2009 Surgical History Surgical History History of tonsillectomy 1982 History of hernia repair Inguinal 2006 Family History Family History Mother Heart disease Father Cancer Grandparent Cerebrovascular accident Cancer Diabetes mellitus Heart disease Social History Social History Smoking status: Never smoker Alcohol intake: current Drinks per week: 6 Alcohol use details: BEER Substance use: never Substance use type: does not use Lack of Transportation: No Lack of Food: Never True Current Housing: I Have Housing Concerned About Future Housing: No Difficulty Paying Gas/Electric Bills: No Difficulty Paying for Meds: No Currently Unemployed: No Education: Master's Degree or Higher Difficulty w/ Childcare or Family Care: No Living arrangements: with family Spiritual care concerns: No Meds Home Medications and Allergies Home Medications ?Medication ?Instructions ?Recorded ?Confirmed ?Type metoprolol succinate 25 mg 25 mg PO DAILY 12/23/19 01/14/25 History tablet,extended release 24 hr multivitamin (Daily Multi-Vitamin 1 tablet PO DAILY 12/23/24 01/14/25 History tablet) omeprazole 20 mg tablet,delayed 40 mg (2 x 20 mg) PO DAILY 1 month 01/14/25 01/14/25 Rx release #60 tabs Allergies Allergy/AdvReac Type Severity Reaction Status Date / Time No Known Allergies Allergy Unknown Verified 01/14/25 06:16 Vital Signs Vital Signs - 24 hr 01/14/25 06:18 Temperature 96.9 F L Pulse Rate 52 L Respiratory Rate 16 Blood Pressure 146/99 H Pulse Oximetry 99 Oxygen Delivery Room Air Exam Const: General: comfortable and no acute distress HENMT: Face/Nose/Sinus: Normal nares present Eyes: General: appearance normal, both eyes and all related structures Neck: Neck: no JVD Resp: Auscultation: clear to auscultation bilaterally Cardio: Rate: regular rate Rhythm: regular rhythm GI: Inspection: non-distended GI Palp: Yes Soft to palpation Skin: General skin exam: normal color Extrem: General: normal to inspection Psych: Mental Status: mental status grossly normal Assessment and Plan Assessment and plan (1) GERD (gastroesophageal reflux disease): Code(s): K21.9 - Gastro-esophageal reflux disease without esophagitis Status: Acute (2) Lebron esophagus: Qualifiers: Lebron's esophagus type: with dysplasia of unspecified degree Qualified Code(s): K22.719 - Lebron's esophagus with dysplasia, unspecified Code(s): K22.70 - Lebron's esophagus without dysplasia Status: Acute Assessment and Plan: egd with bx
[2025-01-14 07:35] VITALS: BP 129/82; PULSE 60; RESP 14; O2SAT 95
--- NOTE | 2025-01-14 07:35 | S_PTH ---
PATIENT: John Lamar LOC: [facility]#:[id number] AGE/SX: 55/M ROOM: RE01/14/[address]: Eamon Martinez MD : 1970 BED: DIS: 01/14/2025 SPEC #: [id number] RECD: 01/14/25 08:07 STATUS: IVAN REDeborah #: [id number] BONNY: 01/14/25 07:[address]: Eamon Martinez DEPT: [facility] Surgical RECD BY: Alyce Barillas ENTERED: 01/14/25 08:07 SP TYPE: Surgical OTHR DR: Erick Robb DO Tissues: A - Esophageal Biopsy Procedures: Hematoxylin and Eosin Stain Gross and Microscopic Level 4
[2025-01-14 07:45] VITALS: BP 136/86; PULSE 55; RESP 16; O2SAT 98
[2025-01-14 07:55] VITALS: BP 127/81; PULSE 53; RESP 17; O2SAT 96
== END 2025-01-14 08:05 | disposition home or self-care (01) ==
PROVIDERS: PCP Internal Medicine; Visit Provider Internal Medicine Gastroenterology
PROC: 0DJ08ZZ Inspection of Upper Intestinal Tract, Via Natural or Artificial Opening Endoscopic (ICD-10-PCS; CPT 43239; principal; 2025-01-14 07:30)
DX: K22.70 Barrett's esophagus without dysplasia (principal); K21.00 Gastro-esophageal reflux disease with esophagitis, without bleeding; K44.9 Diaphragmatic hernia without obstruction or gangrene
CPT/HCPCS: 43239; 88305; J2704; J7120